=== PATIENT | female | born 1955 | race Caucasian/White ===

== ENCOUNTER → 2017-01-15 | Outpatient (CLI) | payer BC ==
--- NOTE | 2017-01-16 14:26 | MM ---
Reason for exam: screening (asymptomatic). Last mammogram was performed 1 year and 10 months ago. History: Patient is postmenopausal. Took hormonal contraceptives for 3 years beginning at age 25. Physical Findings: A clinical breast exam by your physician is recommended on an annual basis and results should be correlated with mammographic findings. MG 3D Screening Mammo W/Cad Bilateral CC and MLO view(s) were taken. Prior study comparison: March 14, 2015, left breast US breast workup LT. March 10, 2015, bilateral MG screening mammo w CAD. March 03, 2014, bilateral MG work up mamm w CAD BILAT. February 24, 2014, bilateral MG screening mammo w CAD. There are scattered fibroglandular densities. No significant changes when compared with prior studies. ASSESSMENT: Negative, BI-RAD 1 RECOMMENDATION: Routine screening mammogram of both breasts in 1 year.
== END | disposition home or self-care (01) ==
LOC: RADMAMWWP 08:00
PROVIDERS: ATTEND Family Medicine
DX: Z12.31 Encounter for screening mammogram for malignant neoplasm of breast (principal)
CPT/HCPCS: 77063; G0202

== ENCOUNTER 2017-05-07 06:52 | Day surgery (SDC) | payer BC ==
[2017-05-02 13:42] VITALS: BMI 32.3
[~2017-05-07 06:52] MED LIST: LACTATED RINGERS 1,000 ML IV SCH
[2017-05-07 07:12] VITALS: TEMP 97.3
[2017-05-07 07:12] LABS: Glucose,Whole Blood 148 mg/dL (75-99)
[2017-05-07] MEDS ORDERED: PROPOFOL 10 MG/ML 20 ML VIAL IV ONE (07:36)
[2017-05-07] MEDS ORDERED: LIDOCAINE 1% INJ 10MG/ML (20 ML MDV) ONE (07:36)
--- NOTE | 2017-05-07 07:47 | P.GSHP ---
History of Present Illness H&P Date: 05/07/17 Chief Complaint: Change in bowel habits Patient here today for colonoscopy. Last colonoscopy 4-5 years ago. She believes that was normal. Recently she has had some loose stools and incomplete evacuation sedation. No family history of colon cancer. Past Medical History Past Medical History: Diabetes Mellitus, Hypertension, Osteoarthritis (OA) Additional Past Medical History / Comment(s): 1 EPISODE OF ISCHEMIC COLITIS ( 2008), ARTHRITIS KNEE. History of Any Multi-Drug Resistant Organisms: None Reported Past Surgical History: Appendectomy Additional Past Surgical History / Comment(s): GLAUCOMA & CATARACTS SURGERY ( 2016), APPENDECTOMY (1999) Past Anesthesia/Blood Transfusion Reactions: No Reported Reaction Past Psychological History: No Psychological Hx Reported Smoking Status: Former smoker Past Alcohol Use History: Occasional Additional Past Alcohol Use History / Comment(s): QUIT SMOKING 33 YEARS AGO. SMOKED 1/2 PPD FOR 10 YEARS. Past Drug Use History: None Reported - Past Family History Father Family Medical History: Cancer Additional Family Medical History / Comment(s): BLADDER CANCER Medications and Allergies Home Medications Medication Instructions Recorded Confirmed Type Atenolol [Tenormin] 25 mg PO BID 05/02/17 05/07/17 History Naproxen [Naprosyn] 375 mg PO DAILY PRN 05/02/17 05/07/17 History Prednisone Eye Gtts 1 drop BOTH EYES DAILY 05/02/17 05/07/17 History metFORMIN HCL [Glucophage] 500 mg PO BID 05/02/17 05/07/17 History Allergies Allergy/AdvReac Type Severity Reaction Status Date / Time Iodinated Contrast- Oral and Allergy Severe Nausea & Verified 05/02/17 13:29 IV Dye Vomiting, Larue very ill. Surgical - Exam Vital Signs Temp Pulse Resp BP Pulse Ox 97.3 F L 67 14 180/84 96 05/07/17 07:09 05/07/17 07:09 05/07/17 07:09 05/07/17 07:09 05/07/17 07:09 Physical exam: General: Well-developed, well-nourished HEENT: Normocephalic, sclerae nonicteric Abdomen: Nontender, nondistended Extremities: No edema Neuro: Alert and oriented Results - Labs Abnormal Lab Results - Last 24 Hours (Table) 05/07/17 Range/Units 07:08 POC Glucose (mg/dL) 148 H (75-99) mg/dL Assessment and Plan (1) Change in bowel habits Narrative/Plan: Will proceed with colonoscopy at this time. Status: Acute
--- NOTE | 2017-05-07 08:02 | P.PCN ---
Date of Procedure: 05/07/17 Preoperative Diagnosis: Postoperative Diagnosis: Procedure(s) Performed: PREOPERATIVE DIAGNOSIS: Change in bowel habits POSTOPERATIVE DIAGNOSIS: Diverticulosis PROCEDURE: Colonoscopy ANESTHESIA: MAC SURGEON: Brodie Schneider M.D. SPECIMENS: None ENDOSCOPIC PROCEDURE: The patient was placed on the endoscopy table in the left decubitus position. The Olympus colonoscope was inserted into the anus and passed under direct visualization to the base of the cecum. The appendiceal orifice was visualized. From that point the scope was slowly withdrawn inspecting all surfaces carefully. There were no neoplastic inflammatory or polypoid lesions throughout the cecum, ascending, transverse, descending, sigmoid and rectum. There was mild diverticulosis noted in the left colon. Digital rectal examination was normal. The patient was taken to the recovery room in stable condition per anesthesia guidelines. RECOMMENDATIONS: Increase fiber. Follow-up colonoscopy 10 years. Implants: Indications for Procedure: Operative Findings: Description of Procedure:
[2017-05-07 08:19] VITALS: BP 156/77; PULSE 56; RESP 16
== END 2017-05-07 08:45 | disposition home or self-care (01) ==
LOC: ORWHC2ENDO 06:52
PROVIDERS: ATTEND Surgery
DX: K57.90 Diverticulosis of intestine, part unspecified, without perforation or abscess without bleeding (principal); R19.4 Change in bowel habit; Z87.891 Personal history of nicotine dependence; E11.9 Type 2 diabetes mellitus without complications; Z79.84 Long term (current) use of oral hypoglycemic drugs; I10 Essential (primary) hypertension; H40.9 Unspecified glaucoma; Z91.041 Radiographic dye allergy status; Z79.899 Other long term (current) drug therapy
CPT/HCPCS: 45378; J2001; J2704

== ENCOUNTER → 2018-02-19 | Outpatient (CLI) | payer BC ==
--- NOTE | 2018-02-19 18:27 | BD ---
EXAMINATION TYPE: Axial Bone Density DATE OF EXAM: 02/19/2018 CLINICAL HISTORY: Height: 65 inches Weight: 203 FRAX RISK QUESTIONS: Alcohol (3 or more units per day): no Family History (Parent hip fracture): no Glucocorticoids (More than 3mos): no (Ex: prednisone, prednisolone, methylprednisolone, dexamethasone, and hydrocortisone). History of Fracture in Adulthood: no Secondary Osteoporosis: 1. Type 1 Diabetes: no 2. Hyperthyroidism: no 3. Menopause before 45: no 4. Malnutrition: no 5. Chronic liver disease: no Rheumatoid Arthritis: no Current Tobacco Use: no RISK FACTORS HISTORY OF: Family History of Osteoporosis: no Active: yes Diet low in dairy products/other sources of calcium: no Postmenopausal woman: yes Take estrogen and/or progesterone medications: not now How long: hormonal contraceptives about 3 years Lost more than 2 inches in height since high school: no Frequent falls: no Poor Health: no Hyperparathyroidism: no Adrenal Insufficiency: no MEDICATIONS: Prednisone or other steroids: no Thyroid Medications: no Osteoporosis Medications: no Additional Medications: diabetes meds, blood pressure meds Additional History: type II diabetic EXAM MEASUREMENTS: Bone mineral densitometry was performed using the [employer] System. Bone mineral density as measured about the Lumbar spine is: ----- L1-L4(G/cm2): 1.229 T Score Values are as follows: ----- L2: 0.0 ----- L3: 0.7 ----- L4: 0.8 ----- L1-L4: 0.4 Bone mineral density not previously done at this facility; done elsewhere Bone mineral density about the R hip (g/cm2): 0.944 Bone mineral density about the L hip (g/cm2): 0.945 T Score values are as follows: -----R Neck: -0.7 -----L Neck: -0.7 -----R Total: -0.5 -----L Total: -0.4 Bone mineral density not previously done at this facility; done elsewhere IMPRESSION: Normal (Values between +1 and -1 indicate normal bone mass). Consider repeating this study in 5 year s or sooner if there is some new clinical indication. NOTE: T-SCORE=SD OF THE YOUNG ADULT MEAN.
--- NOTE | 2018-02-23 11:08 | MM ---
Reason for exam: screening (asymptomatic). Last mammogram was performed 1 year and 1 month ago. History: Patient is postmenopausal. Took hormonal contraceptives for 3 years beginning at age 25. Physical Findings: A clinical breast exam by your physician is recommended on an annual basis and results should be correlated with mammographic findings. MG 3D Screening Mammo W/Cad Bilateral CC and MLO view(s) were taken. Prior study comparison: January 15, 2017, bilateral MG 3d screening mammo w/cad. March 10, 2015, bilateral MG screening mammo w CAD. There are scattered fibroglandular densities. There is an approximately 5mm mass upper outer quadrant at middle depth right breast. No suspicious abnormality in the left breast. ASSESSMENT: Incomplete: need additional imaging evaluation, BI-RAD 0 RECOMMENDATION: Special view mammogram of the right breast. If lesion persists on supplemental views, image directed ultrasound is recommended. [facility] will attempt to contact patient to return for supplemental views and ultrasound if indicated.
== END | disposition home or self-care (01) ==
LOC: RADMAMWWP 07:36
PROVIDERS: ATTEND Family Medicine
DX: Z12.31 Encounter for screening mammogram for malignant neoplasm of breast (principal); Z78.0 Asymptomatic menopausal state
CPT/HCPCS: 77063; 77067; 77080

== ENCOUNTER → 2018-03-04 | Outpatient (CLI) | payer BC ==
--- NOTE | 2018-03-04 11:34 | MM ---
Reason for exam: additional evaluation requested from abnormal screening. Last mammogram was performed less than 1 month ago. History: Patient is postmenopausal. Took hormonal contraceptives for 3 years beginning at age 25. Physical Findings: Nurse did not find any significant physical abnormalities on exam. MG 3D Work Up W/Cad RT Spot compression CC, spot compression MLO, and LM view(s) were taken of the right breast. Prior study comparison: February 19, 2018, bilateral MG 3d screening mammo w/cad. January 15, 2017, bilateral MG 3d screening mammo w/cad. March 14, 2015, left breast US breast workup LT. March 03, 2014, bilateral MG work up mamm w CAD BILAT. February 24, 2014, bilateral MG screening mammo w CAD. There are scattered fibroglandular densities. Finding: There is a persistent indistinct architectural distortion located 10 cm from the nipple in the upper outer quadrant, middle position of the right breast. New finding since March 14, 2015, March 03, 2014, and February 24, 2014. These results were verbally communicated with the patient and result sheet given to the patient on 03/04/18. ASSESSMENT: Incomplete: need additional imaging evaluation, BI-RAD 0 RECOMMENDATION: Ultrasound of the right breast.
--- NOTE | 2018-03-04 11:36 | USB ---
Reason for exam: additional evaluation requested from abnormal screening. History: Patient is postmenopausal. Took hormonal contraceptives for 3 years beginning at age 25. US Breast Workup Limited RT Technologist: Linda Rosen, RT (R)(M) Right limited breast ultrasound including focal area of concern, retroareolar and axilla demonstrates a 5 x 6 x 4mm irregular, solid, hypoechoic, taller than wide lesion at 11 o'clock, 9.8cm from nipple. These results were verbally communicated with the patient and result sheet given to the patient on 03/04/18. ASSESSMENT: Suspicious, BI-RAD 4 RECOMMENDATION: Ultrasound core biopsy of the right breast. Called Dr. Schneider with mammographic findings and has scheduled an appointment for the patient for 03/05/18 at 11:[address] Valdes. PRELIMINARY REPORT CALLED AND FAXED TO DR. VALDES ON 03/04/18.
== END | disposition home or self-care (01) ==
LOC: RADMAMWWP 08:07
PROVIDERS: ATTEND Family Medicine
DX: R92.8 Other abnormal and inconclusive findings on diagnostic imaging of breast (principal)
CPT/HCPCS: 77061; 77065

== ENCOUNTER → 2018-03-10 | Day surgery (SDC) | payer BC ==
[2018-03-10 13:41] VITALS: BMI 33.3
[2018-03-10 15:08] VITALS: BP 139/85; PULSE 56; RESP 16; TEMP 98.3
--- NOTE | 2018-03-10 15:25 | USB ---
EXAMINATION TYPE: US biopsy breast VAD RT DATE OF EXAM: 03/10/2018 CLINICAL HISTORY: R92.8 Abnormal mammogram. TECHNIQUE: Ultrasound guided core biopsy of right 11:00 breast. COMPARISON: NONE FINDINGS: The procedure of ultrasound guided core biopsy was explained to the patient. Benefits, alt ernatives, and risks were discussed. An informed consent was then obtained. The patient was placed in supine positioning for imaging and for the procedure. The overlying skin w as prepped and draped in usual sterile fashion. Lidocaine buffered with bicarbonate was used as anes thetic into the skin and subcutaneous tissue up to area of concern in the right 11:00 breast. A miah was made with surgical scalpel. Under ultrasound guidance, a 12-gauge vacuum assisted biopsy gun device was used to obtain 5 core ant ples. Following this, a biopsy clip was left in lesion. Postprocedural mammogram demonstrates approp riate deployment. The patient tolerated the procedure well without any immediate complication. The patient was kept in the radiology department for short stay after the procedure and then discharged home in stable condi tion. IMPRESSION: Successful, uncomplicated ultrasound guided core biopsy of area of concern in the right 1 1:00 breast, full pathology results to follow.
--- NOTE | 2018-03-11 11:37 | MM ---
Reason for exam: additional evaluation requested from abnormal screening. Last mammogram was performed less than 1 month ago. History: Patient is postmenopausal. Took hormonal contraceptives for 3 years beginning at age 25. MG Diagnostic Mammo RT Wo CAD CC and LM view(s) were taken of the right breast. Prior study comparison: March 04, 2018, right breast MG 3d work up w/cad RT. February 19, 2018, bilateral MG 3d screening mammo w/cad. ASSESSMENT: Post procedure mammogram for marker placement RECOMMENDATION: Ultrasound of the right breast in 6 months. PENDING PATHOLOGY RESULTS.
== END ==
LOC: RADUSWWP 13:00
PROVIDERS: ATTEND Surgery
DX: D05.11 Intraductal carcinoma in situ of right breast (principal); Z91.048 Other nonmedicinal substance allergy status
CPT/HCPCS: 88305; 88342; 77065; 19083; A4648; J2001

== ENCOUNTER 2018-05-12 07:56 | Day surgery (SDC) | payer BC ==
[2018-05-07 14:18] VITALS: BMI 33.3
[~2018-05-12 07:56] MED LIST changes: +HEPARIN SODIUM,PORCINE 5,000 UNIT/ML 1 ML VIAL SQ ONE; +LIDOCAINE 1% 20 ML VIAL (10MG/ML) FOR IV START INTRADERMA PRN; +MIDAZOLAM 2 MG/2 ML VIAL IV PRN; +Pre Op ABX Message 1 EACH MISC MISCELLANE ONE; +fentaNYL (PF) 50 MCG/ML 2 ML AMP IV PRN
[2018-05-12 08:31] LABS: Glucose,Whole Blood 173 mg/dL (75-99)
[2018-05-12 08:32] VITALS: RESP 16; TEMP 97.1
[2018-05-12] MEDS ORDERED: ONDANSETRON 4 MG/2 ML VIAL IVP ONE (08:32)
[2018-05-12] MEDS ORDERED: DEXAMETHASONE SOD PHOS (MDV) 100 MG/10 ML VIAL IV ONE (08:33)
[2018-05-12] MEDS ORDERED: MIDAZOLAM 2 MG/2 ML VIAL ONE (09:00)
[2018-05-12] MEDS ORDERED: fentaNYL (PF) 50 MCG/ML 2 ML AMP ONE (09:00)
[2018-05-12] MEDS ORDERED: PROPOFOL 10 MG/ML 20 ML VIAL IV ONE (09:00)
[2018-05-12] MEDS ORDERED: HEPARIN SODIUM,PORCINE 100 UNIT/ML 5 ML VIAL IV ONE (09:23)
[2018-05-12] MEDS ORDERED: LIDOCAINE 1% INJ 10MG/ML (20 ML MDV) SQ ONE (09:23)
[2018-05-12] MEDS ORDERED: SODIUM CHLORIDE 0.9% 50 ML with ceFAZolin 2,000 MG IV ONE ×2 (09:24)
[2018-05-12] MEDS ORDERED: NALOXONE 0.4 MG/ML 1 ML VIAL IV PRN (10:05)
--- NOTE | 2018-05-12 10:11 | P.OP ---
Date of Procedure: 05/12/18 Preoperative Diagnosis: Right breast cancer Postoperative Diagnosis: Right breast cancer Procedure(s) Performed: Mediport placement with fluoroscopy Anesthesia: MAC, local Surgeon: Sonido Amin Pathology: none sent Condition: stable Disposition: same day Indications for Procedure: 63-year-old female with recent diagnosis of right-sided breast cancer. She has opted for chemotherapy. She presents today for Mediport placement for chemotherapy. Operative Findings: Mediport appeared in place under fluoroscopic guidance in the OR. Adequate withdrawal and flushed. Description of Procedure: The patient was brought to the operating suite and placed in supine position on the operating table. Sedation was provided by anesthesia. Local anesthetic was administered in the left chest. The introducer needle was placed into the subclavian vein on first attempt and nonpulsatile dark blood was withdrawn. Guidewire was placed and was confirmed in place with fluoroscopic imaging. At this point, a pocket was created for port placement. An incision was made dissection was carried to the prepectoral fascia and an adequate amount of room was created using electrocautery. Hemostasis was maintained. At this point a tunnel was made between the pocket and the guidewire site. The guidewire was then dilated with a dilator sheath. This was done under fluoroscopic guidance. Catheter was then placed into the dilator sheath and guidewire was removed. The catheter was then attached to the port and locked into place. The port was placed into the pocket and both adequate withdrawal and flushing was noted. Fluoroscopic imaging confirmed appropriate placement. The Mediport was then sutured into place to the prepectoral fascia using 2-0 Prolene suture. Heparin lock was applied. Skin incision was then closed with 4-0 Vicryl subcuticular suture. The patient was awakened in the operative and taken to postanesthesia care unit in stable condition. Pending chest x-ray in PACU.
[2018-05-12 10:17] VITALS: PULSE 56
--- NOTE | 2018-05-12 11:14 | XR ---
EXAMINATION TYPE: XR chest 1V DATE OF EXAM: 05/12/2018 COMPARISON: NONE HISTORY: 53-year-old female Mediport placement TECHNIQUE: Single frontal view of the chest is obtained. FINDINGS: Left anterior chest wall injection port with subclavian access. Catheter tip is at the mid SVC level. Heart upper limits of normal in size. Aorta within normal limits. Mild interstitial prominence as a chronic appearance. No consolidation, pneumothorax, or pleural effusion. There is some tortuous appea chemo to the proximal aspect of the catheter as it courses along the left apex. IMPRESSION: Left subclavian access injection port. The proximal segment of the catheter as it courses along the l eft apex has a tortuous course. The tip is at the mid SVC level.
[2018-05-12 11:21] VITALS: BP 147/85
--- NOTE | 2018-05-12 14:00 | FL ---
EXAMINATION TYPE: FL guided central line placemt DATE OF EXAM: 05/12/2018 FLUOROSCOPY Fluoroscopy time of 27 seconds was used during Port-A-Cath insertion. 2 image/s document/s the susana galaviz.
== END 2018-05-12 11:41 | disposition home or self-care (01) ==
LOC: OR 07:56
PROVIDERS: ATTEND Surgery
DX: Z45.2 Encounter for adjustment and management of vascular access device (principal); C50.911 Malignant neoplasm of unspecified site of right female breast; Z91.041 Radiographic dye allergy status; E11.9 Type 2 diabetes mellitus without complications; I10 Essential (primary) hypertension; Z79.84 Long term (current) use of oral hypoglycemic drugs; Z79.899 Other long term (current) drug therapy
CPT/HCPCS: 77001; 71045; 36561; C1788; J2250; J1644; J1642; J2405; J2001; J3010; J0690; J1100; J2704

== ENCOUNTER 2018-06-05 07:30 | Day surgery (SDC) | payer BC ==
[2018-06-05 10:38] VITALS: BP 178/79; PULSE 61; RESP 18
--- NOTE | 2018-06-05 11:04 | XR ---
EXAMINATION TYPE: XR chest 1V portable DATE OF EXAM: 06/05/2018 HISTORY: Shortness of breath. COMPARISON: 05/12/2018 TECHNIQUE: Single view of the chest is submitted. FINDINGS: Left-sided Port-A-Cath is noted with its distal tip overlying the SVC. No evidence for pneumothorax. Demonstrated are scattered senescent parenchymal change. There is no evidence for focal infiltrate. The heart is stable. Hilar and mediastinal structures are within normal limits. Degenerative changes are seen of the dorsal spine. IMPRESSION: 1. Chronic changes without evidence for acute pulmonary disease. Port-A-Cath as noted.
== END 2018-06-05 08:45 | disposition home or self-care (01) ==
LOC: CATHCVL 07:30
PROVIDERS: ATTEND Radiology Diagnostic Radiology
DX: I10 Essential (primary) hypertension (principal); E11.9 Type 2 diabetes mellitus without complications; Z79.84 Long term (current) use of oral hypoglycemic drugs; Z83.2 Family history of diseases of the blood and blood-forming organs and certain disorders involving the immune mechanism; Z87.891 Personal history of nicotine dependence; Z80.3 Family history of malignant neoplasm of breast; Z80.52 Family history of malignant neoplasm of bladder; Z79.899 Other long term (current) drug therapy; Z91.041 Radiographic dye allergy status; Z53.8 Procedure and treatment not carried out for other reasons
CPT/HCPCS: 71045

== ENCOUNTER 2018-06-08 10:00 | Day surgery (SDC) | payer BC ==
[2018-06-08 09:30] VITALS: BP 167/80; PULSE 88; RESP 18; TEMP 97.9
[2018-06-08] MEDS ORDERED: SODIUM CHLORIDE 0.9% 250 ML IV ONE (10:12)
[2018-06-08] MEDS ORDERED: IOPAMIDOL-250 50ML BTL IV ONE (10:14)
--- NOTE | 2018-06-08 11:27 | IR ---
Port-A-Cath check HISTORY: Malfunctioning Port-A-Cath Real-time evaluation performed under fluoroscopy of the patient's Port-A-Cath. Maximal barrier technique was utilized. Patient's indwelling port was accessed by the radiology nurse . Gentle hand injection of contrast material performed under fluoroscopic observation. 520 images were obtained. 0.9 minutes fluoroscopy time. Patient received 10 cc radiographic contrast intravenously. Initial evaluation shows a kink at the proximal portion of the catheter. The port shows no extravasat ion, the catheter is intact. No evident leak. Following demonstration of contrast material digital martinez btraction angiography confirms contrast material courses from the portion of the catheter proximal to the tip. Catheter tip courses towards the level of the junction of the azygos vein and superior vena cava. Contrast does fill the central veins, superior vena cava. Catheter tip is intravenous. Patient remained in stable condition following the procedure. There is no bleeding or evident applica tion. Patient was discharged in stable condition. IMPRESSION: There is a fibrin sheath at the distal tip of the catheter. There is intravenous placemen t of the catheter tip, contrast courses into the central circulation. Additional findings above.
== END 2018-06-08 12:20 | disposition home or self-care (01) ==
LOC: CATHCVL 10:00
PROVIDERS: ATTEND Radiology Diagnostic Radiology
DX: T82.598A Other mechanical complication of other cardiac and vascular devices and implants, initial encounter (principal); C50.411 Malignant neoplasm of upper-outer quadrant of right female breast; E11.9 Type 2 diabetes mellitus without complications; Z79.84 Long term (current) use of oral hypoglycemic drugs; I10 Essential (primary) hypertension; Z80.3 Family history of malignant neoplasm of breast; Z87.891 Personal history of nicotine dependence; Z80.52 Family history of malignant neoplasm of bladder; Z91.041 Radiographic dye allergy status; Z79.899 Other long term (current) drug therapy
CPT/HCPCS: 36598; Q9966

== ENCOUNTER → 2020-03-30 | Outpatient (CLI) | payer MEDICARE, BC ==
--- NOTE | 2020-03-30 14:00 | MM ---
Reason for exam: additional evaluation requested from prior study. Last mammogram was performed 1 year and 1 month ago. History: Patient is postmenopausal and has history of breast cancer at age 63. Malignant US biopsy breast VAD RT of the right breast, March 10, 2018. Lumpectomy of the right breast. Chemotherapy. Radiation therapy of the right breast. Took hormonal contraceptives for 3 years beginning at age 25. Taking antineoplastic for 2 years beginning at age 63. Physical Findings: Nurse Summary: 1cm nodule in the right breast at 12 o'clock, 1.5cm nodule in the left breast at 11 o'clock (nurse mj). MG 3D Diag Mammo W/Cad KENNETH Bilateral CC and MLO view(s) were taken. Prior study comparison: March 09, 2019, bilateral MG 3d diag mammo w/cad KENNETH. March 10, 2018, right breast MG diagnostic mammo RT wo CAD. February 19, 2018, bilateral MG 3d screening mammo w/cad. January 15, 2017, bilateral MG 3d screening mammo w/cad. No significant new findings when compared with previous films. These results were verbally communicated with the patient and result sheet given to the patient on 03/30/20. ASSESSMENT: Benign, BI-RAD 2 RECOMMENDATION: Follow-up diagnostic mammogram of both breasts in 1 year.
== END | disposition home or self-care (01) ==
LOC: RADMAMWWP 12:30
PROVIDERS: ATTEND Radiology Radiation Oncology
DX: C50.411 Malignant neoplasm of upper-outer quadrant of right female breast (principal); Z92.3 Personal history of irradiation; Z17.0 Estrogen receptor positive status [ER+]
CPT/HCPCS: 77066; G0279; 77062

== ENCOUNTER → 2020-05-24 | Outpatient (CLI) | payer MEDICARE, BC ==
--- NOTE | 2020-05-24 16:26 | BD ---
EXAMINATION TYPE: Axial Bone Density DATE OF EXAM: 05/24/2020 COMPARISON: NONE CLINICAL HISTORY: Postmenopausal screening Height: 5 FT 5 IN Weight: 198 FRAX RISK QUESTIONS: Alcohol (3 or more units per day): NO Family History (Parent hip fracture): NO Glucocorticoids (More than 3mos): NO (Ex: prednisone, prednisolone, methylprednisolone, dexamethasone, and hydrocortisone). History of Fracture in Adulthood: YES Secondary Osteoporosis: 1. Type 1 Diabetes: NO 2. Hyperthyroidism: NO 3. Menopause before 45: NO 4. Malnutrition: NO 5. Chronic liver disease: NO Rheumatoid Arthritis: NO Current Tobacco Use: NO RISK FACTORS HISTORY OF: Family History of Osteoporosis: NO Active: SOMEWHAT Postmenopausal woman: AGE 56 MEDICATIONS: Additional Medications: METFORMIN, ATENOLOL, LOSARTIN, HORMONE DOMINGA, VIT D Additional History: BREAST CANCER 2018 CHEMO AND RADIATION EXAM MEASUREMENTS: Bone mineral densitometry was performed using the [employer] System. Bone mineral density as measured about the Lumbar spine is: ----- L1-L4(G/cm2): 1.121 T Score Values are as follows: ----- L2: -0.8 ----- L3: 0.0 ----- L4: -0.1 ----- L1-L4: -0.5 Bone mineral density has: DECREASED -7.8 % since study of: 2017 Bone mineral density about the R hip (g/cm2): 0.840 Bone mineral density about the L hip (g/cm2): 0.907 T Score values are as follows: -----R Neck: -1.4 -----L Neck: -0.9 -----R Total: -1.0 -----L Total: -0.6 Bone mineral density has: DECREASED -4.6 % since study of: 2018 IMPRESSION: Osteopenia (T Score between -2.5 and -1). There is slightly increased risk of fracture and the patient may be considered for treatment. Re-Screen 2-5 years. NOTE: T-SCORE=SD OF THE YOUNG ADULT MEAN.
== END | disposition home or self-care (01) ==
LOC: RADBDWWP 13:01
PROVIDERS: ATTEND Internal Medicine Hematology & Oncology
DX: M85.88 Other specified disorders of bone density and structure, other site (principal); C50.411 Malignant neoplasm of upper-outer quadrant of right female breast; Z91.048 Other nonmedicinal substance allergy status
CPT/HCPCS: 77080

== ENCOUNTER → 2021-04-27 | Outpatient (CLI) | payer MEDICARE, BC ==
--- NOTE | 2021-04-27 14:42 | MM ---
Reason for exam: additional evaluation requested from prior study. Last mammogram was performed 1 year and 1 month ago. History: Patient is postmenopausal and has history of breast cancer at age 63. Malignant US biopsy breast VAD RT of the right breast, March 10, 2018. Lumpectomy of the right breast. Chemotherapy. Radiation therapy of the right breast. Took hormonal contraceptives for 3 years beginning at age 25. Taking antineoplastic for 3 years beginning at age 63. Physical Findings: Nurse did not find any significant physical abnormalities on exam. MG 3D Diag Mammo W/Cad KENNETH Bilateral CC and MLO view(s) were taken. Prior study comparison: March 30, 2020, bilateral MG 3d diag mammo w/cad KENNETH. March 09, 2019, bilateral MG 3d diag mammo w/cad KENNETH. There are scattered fibroglandular densities. Post surgical changes right upper outer quadrant, stable. No significant new findings when compared with previous films. These results were verbally communicated with the patient and result sheet given to the patient on 04/27/21. ASSESSMENT: Benign, BI-RAD 2 RECOMMENDATION: Follow-up diagnostic mammogram of both breasts in 1 year.
== END | disposition home or self-care (01) ==
LOC: RADMAMWWP 13:35
PROVIDERS: ATTEND Internal Medicine Hematology & Oncology
DX: Z08 Encounter for follow-up examination after completed treatment for malignant neoplasm (principal); Z85.3 Personal history of malignant neoplasm of breast
CPT/HCPCS: 77066; G0279; 77062

== ENCOUNTER → 2022-05-27 | Outpatient (CLI) | payer MEDICARE ==
--- NOTE | 2022-05-27 10:36 | BD ---
EXAMINATION TYPE: Axial Bone Density DATE OF EXAM: 05/27/2022 COMPARISON: NONE CLINICAL HISTORY: 67 years year old Female. ICD-10 CODE: M85.88 DISORDER OF BONE DENSITY Height: 5 FT 4 IN Weight: 189 FRAX RISK QUESTIONS: Alcohol (3 or more units per day): NO Family History (Parent hip fracture): NO Glucocorticoids (More than 3mos): NO (Ex: prednisone, prednisolone, methylprednisolone, dexamethasone, and hydrocortisone). History of Fracture in Adulthood: YES Secondary Osteoporosis: 1. Type 1 Diabetes: TYPE 2 2. Hyperthyroidism: NO 3. Menopause before 45: NO 4. Malnutrition: NO 5. Chronic liver disease: NO Rheumatoid Arthritis: NO Current Tobacco Use: NO RISK FACTORS HISTORY OF: Surgery to Spine/Hip(right/left)/Wrist (right/left): NO Family History of Osteoporosis: NO Active: SOMEWHAT Diet low in dairy products/other sources of calcium: NO Postmenopausal woman: YES Take estrogen and/or progesterone medications: NEVER Lost more than 2 inches in height since high school: NO Frequent falls: NO Poor Health: GOOD Hyperparathyroidism: NO Adrenal Insufficiency: NO MEDICATIONS: Additional Medications: METFORMIN,ATENOLOL,LOSARTAN, LETROZOLE, VIT D, EYE DROPS FOR GLAUCOMA Additional History: BREAST CANCER 2018 CHEMO AND RADIATION EXAM MEASUREMENTS: Bone mineral densitometry was performed using the [employer] System. Bone mineral density as measured about the Lumbar spine is: ----- L1-L4(G/cm2): 1.232 T Score Values are as follows: ----- L1: -0.8 ----- L2: 0.1 ----- L3: 0.8 ----- L4: 1.1 ----- L1-L4: 0.4 Bone mineral density has: INCREASED 1.9 % since study of: 2018 Bone mineral density about the R hip (g/cm2): 0.858 Bone mineral density about the L hip (g/cm2): 0.832 T Score values are as follows: -----R Neck: -1.3 -----L Neck: -1.5 -----R Total: -0.7 -----L Total: -0.7 Bone mineral density has: DECREASED -3.4 % since study of: 2018 FRAX%s: The graph provided illustrates a 8.9 % chance for a major osteoporotic fx and a 1.0 % chance for the hips probability for fx in 10 years time. IMPRESSION: Normal (Values between +1 and -1 indicate normal bone mass). Consider repeating this study in 5 year s or sooner if there is some new clinical indication. NOTE: T-SCORE=SD OF THE YOUNG ADULT MEAN.
== END | disposition home or self-care (01) ==
LOC: RADBDWWP 09:46
PROVIDERS: ATTEND Family Medicine
DX: R92.8 Other abnormal and inconclusive findings on diagnostic imaging of breast (principal); Z85.3 Personal history of malignant neoplasm of breast; M85.88 Other specified disorders of bone density and structure, other site
CPT/HCPCS: 77080; 77066; G0279; 77062

== ENCOUNTER → 2023-05-28 | Outpatient (CLI) | payer MEDICARE ==
--- NOTE | 2023-05-28 10:37 | MM ---
Reason for Exam: Additional evaluation requested from prior study. Last screening mammogram was performed 12 month(s) ago. Patient History: Menarche at age 14. First Full-Term at age 30. Late child-bearing (after 30). Postmenopausal. Breast cancer, right, age 63. Previous chest radiation therapy at age 63. Previous chemotherapy at age 63. Hormonal Contraceptives for 3 years from age 25 until age 28. Lumpectomy on the Right side. 03/10/2018, Malignant Core Biopsy on the right side. Chemotherapy. Radiation Therapy, right. Niece had breast cancer, age 35. Prior Study Comparison: 01/15/2017 Bilateral Screening Mammogram, [facility]. 02/19/2018 Bilateral Screening Mammogram, [facility]. 03/04/2018 Right Diagnostic Mammogram, [facility]. 03/10/2018 Right Diagnostic Mammogram, [facility]. 03/09/2019 Bilateral Diagnostic Mammogram, [facility]. 03/30/2020 Bilateral Diagnostic Mammogram, [facility]. 04/27/2021 Bilateral Diagnostic Mammogram, [facility]. 05/27/2022 Bilateral MG 3D diag mammo w/cad [facility], [facility]. Tissue Density: There are scattered fibroglandular densities. Analyzed By CAD. Overall Assessment: Benign, BI-RAD 2 Management: Screening Mammogram of both breasts in 1 year. Electronically signed and approved by: Shailesh Boothe D.O. Radiologis
== END | disposition home or self-care (01) ==
LOC: RADMAMWWP 07:17
PROVIDERS: ATTEND Family Medicine
DX: R92.8 Other abnormal and inconclusive findings on diagnostic imaging of breast (principal); Z78.0 Asymptomatic menopausal state; Z85.3 Personal history of malignant neoplasm of breast; Z80.3 Family history of malignant neoplasm of breast
CPT/HCPCS: 77066; G0279; 77062

== ENCOUNTER → 2024-05-31 | Outpatient (CLI) | payer MEDICARE ==
--- NOTE | 2024-06-14 12:51 | MM ---
Reason for Exam: Screening (asymptomatic). Last screening mammogram was performed 12 month(s) ago. Patient History: Menarche at age 14. First Full-Term at age 30. Late child-bearing (after 30). Postmenopausal. Breast cancer, right, age 63. Previous chest radiation therapy at age 63. Previous chemotherapy at age 63. Hormonal Contraceptives for 3 years from age 25 until age 28. Lumpectomy on the Right side. 03/10/2018, Malignant Core Biopsy on the right side. Chemotherapy. Radiation Therapy, right. Niece had breast cancer, age 35. Prior Study Comparison: 04/27/2021 Bilateral Diagnostic Mammogram, [facility]. 05/27/2022 Bilateral MG 3D diag mammo w/cad KENNETH, [facility]. 05/28/2023 Bilateral MG 3D diag mammo w/cad KENNETH, [facility]. Tissue Density: The breasts are heterogeneously dense, which may obscure small masses. Findings: Analyzed By CAD. There is no suspicious group of microcalcifications or new suspicious mass in either breast. Overall Assessment: Benign, BI-RAD 2 Management: Screening Mammogram of both breasts in 1 year. . Patient should continue monthly self-breast exams. A clinical breast exam by your physician is recommended on an annual basis. This exam should not preclude additional follow-up of suspicious palpable abnormalities. Note on Fay scores and lifetime risk: 1. A Fay score greater than 3% is considered moderate risk. If this is the case, consider specialist referral to assess eligibility for a risk reducing agent. 2. If overall lifetime risk for the development of breast cancer is 20% or higher, the patient may qualify for future screening with alternating mammogram and breast MRI. [facility], , 06/14/2024 12:49 PM. Electronically signed and approved by: Anthony Armijo M.D. Radiologis
== END | disposition home or self-care (01) ==
LOC: RADMAMWWP 09:14
PROVIDERS: ATTEND Family Medicine
DX: Z12.31 Encounter for screening mammogram for malignant neoplasm of breast
CPT/HCPCS: 77063; 77067